=== PATIENT | female | born 1940 | race Caucasian/White ===

== ENCOUNTER → 2016-11-27 | Outpatient (REF) ==
[~2016-11-27] MED LIST: ALEVE 220MG220 MG PO; ANTIVERT 25MG25 MG PO; ASPIRIN E.C. 8181 MG PO; ATENOLOL50 MG PO; CRANBERRY FRUI405 MG PO; FAMOTIDINE40 MG PO; FLONASEALLERGY NS; LEVOTHYROXIN0.075 MG PO; LORAZEPAM0.5 MG PO; NAPROSYN500 MG; NAPROSYN500 MG PO; NITROSTAT0.4 MG/TAB SL; NORVASC 5MG5 MG/TAB PO; PREMARIN0.3 MG PO; PRILOSEC 20MG20 MG PO; PRINIVIL40 MG PO; TYLENOL 325MG325 MG PO; ZOCOR 20MG20 MG PO
== END ==
LOC: ZLAB.WCH 08:47
DX: Z01.89 Encounter for other specified special examinations (principal)

== ENCOUNTER 2017-02-14 12:46 | Day surgery (SDC) | payer MEDICARE, MEDICAID ==
[~2017-02-14] VITALS: Ht 157.5 cm; Wt 77.7 kg
[~2017-02-14 12:46] MED LIST changes: -ATENOLOL50 MG PO; +TENORMIN 5050 MG/TAB PO
[2017-02-14 13:25] VITALS: BP 142/71; PULSE 57; TEMP 97.6
[2017-02-14] MEDS ORDERED: PROTONIX 40MG T40 MG PO (13:41)
[2017-02-14] MEDS ORDERED: TENORMIN 5050 MG/TAB PO (13:43)
[2017-02-14] MEDS ORDERED: ATIVAN 0.50.5 MG/TAB PO (13:50)
[2017-02-14] MEDS ORDERED: XALATAN EYE DROPS OD (13:53)
[2017-02-14 14:40] VITALS: BP 106/56; PULSE 62; TEMP 97.6
[2017-02-14 14:45] VITALS: BP 103/58; PULSE 62
[2017-02-14 15:00] VITALS: BP 113/68; PULSE 62
[2017-02-14 15:23] VITALS: BP 110/61; PULSE 65
== END 2017-02-14 15:25 | disposition home or self-care (01) ==
LOC: SDCO 12:46
DX: K31.1 Adult hypertrophic pyloric stenosis (principal); K31.5 Obstruction of duodenum; G47.33 Obstructive sleep apnea (adult) (pediatric); I10 Essential (primary) hypertension; K21.9 Gastro-esophageal reflux disease without esophagitis; K30 Functional dyspepsia
CPT/HCPCS: OP; C1726; J2250; J3010; J7030

== ENCOUNTER → 2019-04-20 | Outpatient (CLI) | payer MEDICARE, MEDICAID ==
[~2019-04-20] MED LIST changes: +ATIVAN 0.50.5 MG/TAB PO; +PROTONIX 40MG T40 MG PO; +XALATAN EYE DROPS OD
== END ==
LOC: COL.RAD 09:06
DX: Z01.812 Encounter for preprocedural laboratory examination (principal); I65.22 Occlusion and stenosis of left carotid artery
CPT/HCPCS: Q9967

== ENCOUNTER 2021-04-02 17:45 | Emergency (ER) | payer MEDICARE, MEDICAID ==
[~2021-04-02] VITALS: Ht 160 cm; Wt 77.3 kg
[2021-04-02 17:46] VITALS: TEMP 97.9
[2021-04-02 18:21] LABS: ALANINE AMINOTRANSFERASE 18 U/L (0-55); ALBUMIN 3.9 gm/dL (3.4-4.8); ALKALINE PHOSPHATASE 89 U/L (40-150); ANION GAP 12 mmol/L (7-16); AST,SGOT 19 U/L (5-34); BILIRUBIN,TOTAL 0.6 mg/dL (0.2-1.2); BLOOD UREA NITROGEN 10 mg/dL (10-20); C-REACTIVE PROTEIN 1.85 mg/dL (0.00-0.50); CALCIUM 8.8 mg/dL (8.4-10.2); CARBON DIOXIDE 21 mmol/L (23-31); CHLORIDE 108 mmol/L (98-107); CREATININE, serum 0.98 mg/dL (0.57-1.11); GLUCOSE 172 mg/dL (70-99); POTASSIUM 3.7 mmol/L (3.5-4.5); SODIUM 141 mmol/L (136-145); TOTAL PROTEIN 7.5 gm/dL (6.2-8.1)
[2021-04-02 18:28] LABS: BASO # 0.1 K/mm3 (0.0-0.2); BASO % 0.7 % (0.0-2.0); EOS # 0.3 K/mm3 (0.0-0.7); EOS % 2.7 % (0-4.0); GRAN # 6.9 K/mm3 (1.4-6.5); GRAN % 73.1 % (42.2-75.2); HEMATOCRIT 39.2 % (37.0-47.0); HEMOGLOBIN 12.7 g/dl (12.5-16.0); LYMPH # 1.5 K/mm3 (1.2-3.4); LYMPH % 15.9 % (20.0-51.0); MEAN CELL VOLUME 90 fl (80.0-100.0); MEAN CORPUSCULAR HEMOGLOBIN 29 pg (27.0-31.0); MEAN CORPUSCULAR HGB CONC 32 g/dl (33.0-37.0); MEAN PLATELET VOLUME 11.1 fl (7.4-10.4); MONO # 0.7 K/mm3 (0.1-0.6); MONO % 7.3 % (1.7-9.3); PLATELET COUNT 184 K/mm3 (130-400); RED BLOOD COUNT 4.34 M/mm3 (4.10-5.30); REDCELL DISTRIBUTION WIDTH-CV 13.2 % (11.5-14.5)
[2021-04-02 18:29] LABS: TROPONIN-I < 0.010 ng/mL (0.00-0.033)
[2021-04-02 20:27] LABS: COLLECTION METHOD CLEAN CATCH
[2021-04-02 20:32] LABS: MUCOUS Present (NOT PRESENT); PH 5 (5-8); SQUAMOUS EPITHELIAL 0-2 /hpf (0-10); URINE APPEARANCE Clear (CLEAR/HAZY); URINE BACTERIA None Seen (NONE SEEN); URINE BILIRUBIN Negative (NEGATIVE); URINE BLOOD Negative (NEGATIVE); URINE COLOR Yellow (YELLOW); URINE GLUCOSE Negative (NEGATIVE); URINE KETONE Negative (NEGATIVE); URINE LEUKOCYTE ESTERASE Negative (NEGATIVE); URINE NITRATE Negative (NEGATIVE); URINE PROTEIN(semi-quant) Negative (NEGATIVE); URINE RBC 0-2 /hpf (0-2); URINE UROBILINOGEN Negative (NEGATIVE)
[2021-04-02 22:30] VITALS: BP 114/80; PULSE 76
== END 2021-04-02 22:30 | disposition home or self-care (01) ==
LOC: COL.ER 17:45
PROVIDERS: Family Medicine; Nurse Practitioner Primary Care
DX: H81.09 Meniere's disease, unspecified ear (principal); I10 Essential (primary) hypertension; K21.9 Gastro-esophageal reflux disease without esophagitis; F41.9 Anxiety disorder, unspecified; Z79.899 Other long term (current) drug therapy
CPT/HCPCS: J2405; J7030